=== PATIENT | female | born 1950 | race Caucasian/White ===

== ENCOUNTER → 2017-11-16 | Outpatient (CLI) | payer MEDICARE, BC ==
--- NOTE | 2017-11-17 11:13 | Diagnostic Imaging Report ---
EXAMINATION: CT of the lumbar spine HISTORY:Low back pain radiating to the bilateral lower extremities COMPARISON:Lumbar spine CT myelogram on 12/15/2015 TECHNIQUE: Multidetector helical axial images were obtained without contrast from L1 to S1. The images were reconstructed using bone and soft tissue algorithms and were viewed in axial, sagittal, and coronal planes. FINDINGS: Alignment:Normal lordosis. Unchanged grade 1 degenerative spondylolisthesis at L4-L5, as well as extent at L5-S1. Also unchanged minimal retrolisthesis at L1-2 and L2-L3. Vertebral bodies:Normal height and density. Chronic endplate degenerative changes at L1-L2 and L5-S1. Paraspinal muscles:Mpil-nu-fovilphm paraspinal musculature atrophy in the lumbosacral region. Intervertebral disks: L1-L2: Mild symmetric disc bulge and mild facet arthrosis. Mild foraminal narrowing.. L2-L3: Mild symmetric disc bulge and facet arthroses. Minimal foramina narrowing. L3-L4: Mild symmetric disc bulge and facet arthrosis. Minimal foramina narrowing. L4-L5: Decreased disc height, asymmetric to the left this pole junction and marginal endplate osteophytes. Moderate facet arthrosis. Ligamentum flavum thickening. Severe spinal canal stenosis. Moderate left and mild right foraminal stenoses. L5-S1: Decreased disc height, vacuum phenomena, symmetric disc bulge and marginal endplate osteophyte, moderate facet arthrosis. Prominent narrowing of the lateral recesses, mainly on the right side. Moderately severe bilateral foraminal stenoses worst on the left. Right-sided laminotomy defect with minimal right posterolateral epidural scar tissue.. IMPRESSION: 1. Persistent grade 1 degenerative spondylolisthesis at L4-L5 and L5-S1. 2. Worsening now severe degenerative spinal canal and moderate left foraminal stenosis at L4-L5. 3. Persistent stenosis of the right lateral recess at L5-S1 due to degenerative changes. 4. Persistent moderately severe degenerative bilateral foraminal stenosis at L5-S1. Signed by: Dr. Shawna Carvajal M.D. on 11/17/2017 11:09 AM
== END ==
LOC: CT 17:01
PROVIDERS: ATTEND Family Medicine
DX: M54.16 Radiculopathy, lumbar region (principal)
CPT/HCPCS: 72131

== ENCOUNTER → 2023-02-15 | Outpatient (CLI) | payer MEDICARE, BC | LOC: MRI 10:23 | PROVIDERS: ATTEND Family Medicine | DX: M54.16 Radiculopathy, lumbar region (principal) | CPT/HCPCS: 72148 ==

== ENCOUNTER → 2024-04-08 | Outpatient (REF) | payer MEDICARE, BC | LOC: DX 09:35 | PROVIDERS: ATTEND Family Medicine | DX: Z13.820 Encounter for screening for osteoporosis (principal) | CPT/HCPCS: 77080 ==